=== PATIENT | female | born 1975 | race Caucasian/White ===

== ENCOUNTER 2023-11-13 02:42 | Emergency (ER) | payer MEDICARE, OTHER ==
[~2023-11-13] VITALS: Ht 157.5 cm; Wt 90.9 kg
[~2023-11-13 02:42] MED LIST: AMLO2.5T96 PO; ESCI-8 PO; HYDR50CA7 PO; RISP1TAB98 PO
[2023-11-13] MEDS ORDERED: ONDANSETRON HCL 4 MG TABLET PO ONE (03:00)
[2023-11-13] MEDS ORDERED: LORazepam 2 MG TABLET PO ONE (03:00)
[2023-11-13 03:01] VITALS: TEMP 98.1
[2023-11-13 03:39] LABS: BASOPHILS % (AUTO) 0.4 % (0.0-2.0); EOSINOPHILS % (AUTO) 2.2 % (1.0-6.0); HEMATOCRIT 37.8 % (36-46); HEMOGLOBIN 12.9 g/dL (12.0-16.0); MEAN CORPUSCULAR HEMOGLOBIN 30.2 pg (26.0-34.0); MEAN CORPUSCULAR HGB CONC 34.1 G/dL (31.0-37.0); MEAN CORPUSCULAR VOLUME 89 fL (80-100); MONOCYTES # (AUTO) 0.5 K/uL (0.1-1.0); MONOCYTES % (AUTO) 4.9 % (2.0-9.0); NEUTROPHILS # (AUTO) 5.9 K/uL (1.8-7.7); NEUTROPHILS % (AUTO) 61.5 % (40.0-70.0); PLATELET COUNT (AUTO) 254 K/uL (150-450); RED BLOOD CELL COUNT(AUTO) 4.27 MIL/uL (4.00-5.20); WHITE BLOOD COUNT (AUTO) 9.6 K/uL (4.5-11.0)
[2023-11-13 03:49] LABS: ALCOHOL, BLOOD (SERUM) 6 mg/dL (0-10)
[2023-11-13 03:54] LABS: ANION GAP 10 mmol/L (8-16); CALCIUM, TOTAL 8.8 mg/dL (8.8-10.5); CARBON DIOXIDE 24 mmol/L (22-29); CHLORIDE 103 mmol/L (98-107); CREATININE 0.65 mg/dL (0.60-1.30); GLOMERULAR FILTR. RATE CALC > 60 mL/min (>60); GLUCOSE,RANDOM 88 mg/dL (70-110); SODIUM SERUM 137 mmol/L (136-145); UREA NITROGEN, BLOOD 7 mg/dL (7-18)
[2023-11-13 03:59] LABS: ALANINE AMINOTRANSFERASE 37 U/L (12-78); ALBUMIN 3.4 g/dL (3.4-5.0); ALKALINE PHOSPHATASE 91 U/L (46-116); ASPARTATE AMINOTRANSFERASE 29 U/L (15-37); BILIRUBIN,TOTAL 0.3 mg/dL (0.1-1.0); TOTAL PROTEIN, SERUM 7.6 g/dL (6.4-8.2)
[2023-11-13] MEDS ORDERED: AmLODIPine BESYLATE 10 MG TABLET PO ONE (04:15)
[2023-11-13] MEDS ORDERED: AMLO-257 PO (05:16)
[2023-11-13 05:22] VITALS: BP 161/104; PULSE 100; RESP 16
== END 2023-11-13 05:33 | disposition home or self-care (01) ==
LOC: EMS 02:42
DX: I10 Essential (primary) hypertension (principal); F31.9 Bipolar disorder, unspecified; R51.9 Headache, unspecified; F41.9 Anxiety disorder, unspecified; F10.20 Alcohol dependence, uncomplicated; Y90.9 Presence of alcohol in blood, level not specified
CPT/HCPCS: 99284; 80053; 85025; 36415; 93005; G0480; Q0162